=== PATIENT | female | born 1965 | race Caucasian/White ===

== ENCOUNTER 2023-02-03 16:03 | Emergency (ER) | payer OTHER ==
--- OUTSIDE RECORDS SUMMARY | 2023-02-03 16:10 | XMS REPORT | Continuity of Care Document ---
:1965 Author Organization [facility] t Address [address] [place] [address] [place] [id number] Care Team Providers Name Role Phone Pcp, Patient Does Not Have A Primary Care Physician [id number] NAVEEN SEVILLA Attending Clinician Unavailable PATY KUMARI Attending Clinician Unavailable MD SUZANNE Attending Clinician Unavailable CHIQUI COPELAND Attending Clinician Unavailable LAB90 Attending Clinician Unavailable EDDIE VAZQUEZ Attending Clinician Unavailable EDGAR SHAH Attending Clinician Unavailable ERSANJEEV_Jovi Attending Clinician Unavailable Doctor Unassigned, [place] Attending Clinician Unavailable Edy Gan DO Attending Clinician EDY GAN Attending Clinician Unavailable BARB Admitting Clinician Unavailable EDY GAN Admitting Clinician Unavailable Payers Payer Name Policy Type Policy Number Effective Date Expiration Date S asad [employer]ET[employer] MP SILVER 9 [id number] 2022 00:00:00 $30 COPAY 4000 BASIC 94 [employer]ET[employer] (O) [id number] 2022 00:00:00 Problems Condition Condition Condition Status Onset Resolution Last Treating Co mments Source Name Details Category Date Date Treatment Clinician Date Hyperlipid Hyperlipid Disease Active Magda abbasi emgenaro emia 2-15 Seybold 00:00: - 00 Externa l Dysphasia Dysphasia Disease Active Korey sey 2-15 Seybold 00:00: - 00 Externa l Dysphagia Dysphagia Disease Active Korey sey 2-15 Seybold 00:00: - 00 Externa l Type 2 Type 2 Disease Active [place] diabetes diabetes 2-15 Seybol d mellitus mellitus 00:00: - 00 Externa l Stroke Stroke Disease Active Lisset 2-15 Seybold 00:00: - 00 Externa l 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 Seybold upper upper 00:00: - limbs limbs 00 Externa l No known No known Disease Unive rs active active ity of problems problems [facility] Allergies, Adverse Reactions, Alerts Allergy Allergy Status Severity Reaction(s) Onset Inactive Treating Comm ents Source Name Type Date Date Clinician NO KNOWN Drug Active Univers ALLERGIE Class ity of S [facility] Social History Social Habit Start Date Stop Date Quantity Comments Source History of Cigarette Smoker [place] howardborandal - tobacco use External History SDOH 2023-01-16 2023-01-16 3 [place] Yo ld - Financial 00:00:00 00:00:00 External Exposure to 2022-07-28 2022-08-07 Not sure University SARS-CoV-2 00:00:00 11:26:00 [facility] (event) [place] Sex Ass[birth year] At [birth year] [place] Agustin ybold - 00:00:00 00:00:00 External Smoking Status Start Date Stop Date Source Tobacco smoking consumption Renetta howard Seybold - External unknown Smokes tobacco daily 2023-01-17 00:00:00 [place] Gomez - External Medications Ordered Filled Start Stop Current Ordering Indication Dosage Frequency Signature Comments Components Source Medication Medication Date Date Medication? Clinician (SIG) Name Name ASPIRIN 81 Yes Take by Renetta howard OR 3-08 mouth Seybold 11:00: - 39 Externa l Multiple Yes Take by [place] Vitamins-Mi 3-08 mouth Seybold nerals 11:00: - (Womens 50+ 39 Externa Multi l Vitamin/Min ) oral Tablet ASPIRIN 81 Yes Take by Renetta ey OR 3-03 mouth Seybold 11:53: - 05 Externa l Multiple Yes Take by [place] Vitamins-Mi 3-03 mouth Seybold nerals 11:53: - (Womens 50+ 05 Externa Multi l Vitamin/Min ) oral Tablet ASPIRIN 81 Yes Take by Renetta ey OR 3-03 mouth Seybold 11:53: - 05 Externa l Multiple Yes Take by [place] Vitamins-Mi 3-03 mouth Seybold nerals 11:53: - (Womens 50+ 05 Externa Multi l Vitamin/Min ) oral Tablet Nitrofurant 0 Yes [id number] 100mg Take 1 [place] oin Monohyd 2-20 capsule Seybo ld Macro 100 00:00: (100 mg - MG oral 00 total) by Externa Capsule mouth 2 l times daily Nitrofurant 2022-0 Yes [id number] 100mg Take 1 [place] oin Monohyd 2-20 capsule Seybo ld Macro 100 00:00: (100 mg - MG oral 00 total) by Externa Capsule mouth 2 l times daily Nitrofurant 2022-0 2022- No [id number] 100mg Take 1 [place] oin Monohyd 2-20 03-08 capsule Seyb old Macro 100 00:00: 00:00 (100 mg - MG oral 00 :00 total) by Externa Capsule mouth 2 l times daily glipiZIDE 2022-0 2022- No 10mg Take 10 mg K elsey 10 MG oral 2-15 02-15 by mouth Seyb old Tablet 12:26: 00:00 daily - 46 :00 (before a Externa meal) l Lovastatin 2022-0 2022- No 20mg Take 20 mg [place] 20 MG oral 2-15 02-15 by mouth Seyb old Tablet 12:26: 00:00 nightly - 46 :00 Externa l ASPIRIN 81 2022-0 Yes Take by Renetta ey OR 2-15 mouth Seybold 11:45: - 23 Externa l Multiple 0 Yes Take by [place] Vitamins-Mi 2-15 mouth Seybold nerals 11:45: - (Womens 50+ 23 Externa Multi l Vitamin/Min ) oral Tablet Metformin 0 Yes [id number] 500mg Take 1 K elsey HCl 500 MG 2-15 tablet Seybold oral Tablet 00:00: (500 mg - 00 total) by Externa mouth 2 l times daily Lovastatin 0 Yes [id number] 20mg Take 1 K elsey 20 MG oral 2-15 tablet (20 Sey bold Tablet 00:00: mg total) - 00 by mouth Externa nightly l glipiZIDE 2022-0 Yes [id number] 10mg Take 1 Ke lsey 10 MG oral 2-15 tablet (10 Sey bold Tablet 00:00: mg total) - 00 by mouth Externa daily l (before a meal) Metformin 2022-0 Yes [id number] 500mg Take 1 K elsey HCl 500 MG 2-15 tablet Seybold oral Tablet 00:00: (500 mg - 00 total) by Externa mouth 2 l times daily Lovastatin 2022-0 Yes [id number] 20mg Take 1 K elsey 20 MG oral 2-15 tablet (20 Sey bold Tablet 00:00: mg total) - 00 by mouth Externa nightly l glipiZIDE 2022-0 Yes [id number] 10mg Take 1 Ke lsey 10 MG oral 2-15 tablet (10 Sey bold Tablet 00:00: mg total) - 00 by mouth Externa daily l (before a meal) Metformin 2022-0 Yes [id number] 500mg Take 1 K elsey HCl 500 MG 2-15 tablet Seybold oral Tablet 00:00: (500 mg - 00 total) by Externa mouth 2 l times daily Lovastatin 2022-0 Yes [id number] 20mg Take 1 K elsey 20 MG oral 2-15 tablet (20 Sey bold Tablet 00:00: mg total) - 00 by mouth Externa nightly l glipiZIDE 2022-0 Yes [id number] 10mg Take 1 Ke lsey 10 MG oral 2-15 tablet (10 Sey bold Tablet 00:00: mg total) - 00 by mouth Externa daily l (before a meal) Metformin 2022-0 Yes [id number] 500mg Take 1 K elsey HCl 500 MG 2-15 tablet Seybold oral Tablet 00:00: (500 mg - 00 total) by Externa mouth 2 l times daily Lovastatin 2022-0 Yes [id number] 20mg Take 1 K elsey 20 MG oral 2-15 tablet (20 Sey bold Tablet 00:00: mg total) - 00 by mouth Externa nightly l glipiZIDE 2022-0 Yes [id number] 10mg Take 1 Ke lsey 10 MG oral 2-15 tablet (10 Sey bold Tablet 00:00: mg total) - 00 by mouth Externa daily l (before a meal) TAKE ONE 2021-0 No (1) 9-30 TABLET(S) 00:00: BY MOUTH IN 00 THE MORNING AND ONE (1) TABLET IN THE EVENING. B-D 2022-0 Yes Use as [place] ULTRA-FINE 9-21 directed Seybo ld 33 LANCETS 00:00: - does not 00 Externa apply Misc l Blood 2021-0 Yes Use as [place] Glucose 9-21 directed Seybold Monitoring 00:00: - Suppl 00 Externa (Accu-Chek l Guide) w/Device does not apply Kit B-D 2021-0 Yes Use as [place] ULTRA-FINE 9-21 directed Seybo ld 33 LANCETS 00:00: - does not 00 Externa apply Misc l Blood 2021-0 Yes Use as [place] Glucose 9-21 directed Seybold Monitoring 00:00: - Suppl 00 Externa (Accu-Chek l Guide) w/Device does not apply Kit B-D 2021-0 Yes Use as [place] ULTRA-FINE 9-21 directed Seybo ld 33 LANCETS 00:00: - does not 00 Externa apply Misc l Blood 2021-0 Yes Use as [place] Glucose 9-21 directed Seybold Monitoring 00:00: - Suppl 00 Externa (Accu-Chek l Guide) w/Device does not apply Kit B-D 2021-0 Yes Use as [place] ULTRA-FINE 9-21 directed Seybo ld 33 LANCETS 00:00: - does not 00 Externa apply Misc l Blood 2-0 Yes Use as [place] Glucose 9-21 directed Seybold Monitoring 00:00: - Suppl 00 Externa (Accu-Chek l Guide) w/Device does not apply Kit Blood-Gluco 2021-0 Yes [id number] Use as U nivers se Meter 9-21 directed ity of (ACCU-CHEK 00:00: [place] GUIDE 00 Medical GLUCOSE Branch METER) Misc lancets 33 2021-0 Yes [id number] Use as Un surekha gauge Misc 9-21 directed ity o f 00:00: [place] 00 Medical Branch blood sugar 2021-0 Yes [id number] Use as U nivers diagnostic 9-21 directed ity o f (ACCU-CHEK 00:00: [place] GUIDE TEST 00 Medical STRIPS) Branch strip metFORMIN 2021-0 Yes [id number] 500mg Take 1 Un surekha 500 mg 9-21 tablet by ity of tablet 00:00: mouth in [place] 00 the Medical morning Branch and 1 tablet in the evening. Blood-Gluco Yes [id number] Use as U nivers se Meter 08-07 directed ity of (ACCU-CHEK 00:00: [place] GUIDE 00 Medical GLUCOSE Branch METER) Misc lancets 33 0 Yes [id number] Use as Un surekha gauge Misc 08-07 directed ity o f 00:00: [place] 00 Medical Branch blood sugar 0 Yes [id number] Use as U nivers diagnostic 08-07 directed ity o f (ACCU-CHEK 00:00: [place] GUIDE TEST 00 Medical STRIPS) Branch strip metFORMIN Yes [id number] 500mg Take 1 Un surekha 500 mg 9-21 tablet by ity of tablet 00:00: mouth in [place] 00 the Medical morning Branch and 1 tablet in the evening. Metformin 0 2022- No 500mg Take 500 Ke lsey HCl 500 MG 08-07 02-15 mg by Seybold oral Tablet 00:00: 00:00 mouth 2 - 00 :00 times Externa daily l rosuvastati 2021- No [id number] 20mg Take 1 Univers n (CRESTOR) 9-21 10-22 tablet by it y of 20 mg 00:00: 04:59 mouth at [place] tablet 00 :00 bedtime Medical for 30 Branch days. glipiZIDE 2021- No [id number] 10mg Take 1 Un surekha 10 mg 9-21 10-22 tablet by ity of tablet 00:00: 04:59 mouth in [place] 00 :00 the [facility] morning Branch for 30 days. aspirin 81 0 2- No [id number] 81mg Take 1 U nivers mg chewable 9-21 10-22 tablet by it y of tablet 00:00: 04:59 mouth in [place] 00 :00 the Medical morning Branch for 30 days. rosuvastati 2- No [id number] 20mg Take 1 Univers n (CRESTOR) 9-21 10-22 tablet by it y of 20 mg 00:00: 04:59 mouth at [place] tablet 00 :00 bedtime Medical for 30 Branch days. glipiZIDE 2- No [id number] 10mg Take 1 Un surekha 10 mg 9-21 10-22 tablet by ity of tablet 00:00: 04:59 mouth in [place] 00 :00 the [facility] for 30 days. aspirin 81 2- No [id number] 81mg Take 1 U nivers mg chewable 9-21 10-22 tablet by it y of tablet 00:00: 04:59 mouth in [place] 00 :00 the [facility] for 30 days. Vital Signs Vital Name Observation Time Observation Value Comments Source Body weight 2023-01-22 16:54:00 61.689 kg Lisset S eybold - External BMI 2023-01-22 16:54:00 21.95 kg/m2 [place] S eybold - External Systolic blood 2023-01-22 16:54:00 116 mm[Hg] Lisset Seybold - pressure External Diastolic blood 2023-01-22 16:54:00 72 mm[Hg] Koreyse y Seybold - pressure External Heart rate 2023-01-22 16:54:00 86 /min Lisset Dowd eybold - External Body temperature 2023-01-22 16:54:00 36.06 Glo Renetta ey Seybold - External Body height 2023-01-22 16:54:00 167.6 cm [place]isset S eybold - External Systolic blood 2023-01-17 17:47:00 108 mm[Hg] Lisset Seybold - pressure External Diastolic blood 2023-01-17 17:47:00 71 mm[Hg] Kelse y Seybold - pressure External Heart rate 2023-01-17 17:47:00 87 /min [place]isset S eybold - External Body temperature 2023-01-17 17:47:00 37 Glo Renetta ey Seybold - External Respiratory rate 2023-01-17 17:47:00 17 /min Renetta ey Seybold - External Body height 2023-01-17 17:47:00 167.6 cm [place] S eybold - External Body weight 2023-01-17 17:47:00 61.326 kg L[place] S eybold - External BMI 2023-01-17 17:47:00 21.82 kg/m2 Lisset S eybold - External Oxygen saturation in 2023-01-17 17:47:00 95 /min Lisset Seybold - Arterial blood by External Pulse oximetry Systolic blood 2023-01-01 17:37:00 128 mm[Hg] Lisset Agustinybold - pressure External Diastolic blood 2023-01-01 17:37:00 78 mm[Hg] Armando ceja Seybold - pressure External Heart rate 2023-01-01 17:37:00 87 /min Lisset Dowd eybold - External Body temperature 2023-01-01 17:37:00 36.28 Glo Renetta howard Seybold - External Respiratory rate 2023-01-01 17:37:00 15 /min Renetta howard Seybold - External Body height 2023-01-01 17:37:00 160 cm L[place] Dowd eybold - External Body weight 2023-01-01 17:37:00 63.504 kg Lisset howardbold - External BMI 2023-01-01 17:37:00 24.80 kg/m2 Lisset howardbold - External Systolic blood 2022-08-07 15:37:00 128 mm[Hg] Univer sity of pressure [facility] Diastolic blood 2022-08-07 15:37:00 81 mm[Hg] Unive rsity of pressure [facility] Heart rate 2022-08-07 15:37:00 85 /min Universi ty [facility] Body temperature 2022-08-07 15:37:00 36.72 Glo Univ ersity [facility] Respiratory rate 2022-08-07 15:37:00 18 /[facility] 2022-08-07 15:37:00 78.79 kg [facility] Oxygen saturation in 2022-08-07 15:37:00 97 /min [facility] Arterial blood by [facility] Pulse oximetry Branch BP Systolic 2022-08-20 10:48:00 148 mm[Hg] BP Diastolic 2022-08-20 10:48:00 82 mm[Hg] Weight Measured 2022-08-20 10:48:00 171.00 pounds Height Measured 2022-08-20 10:48:00 66.00 inches Body Temperature 2022-08-20 10:48:00 98.30 degrees Heart Rate 2022-08-20 10:48:00 81.00 /min Respiratory Rate 2022-08-20 10:48:00 18.00 /min BP Systolic 2022-07-26 09:51:00 BP Diastolic 2022-07-26 09:51:00 Weight Measured 2022-07-26 09:51:00 175.00 pounds Height Measured 2022-07-26 09:51:00 66.00 inches Body Temperature 2022-07-26 09:51:00 Heart Rate 2022-07-26 09:51:00 Respiratory Rate 2022-07-26 09:51:00 Procedures Procedure Date / Time Performing Clinician Source Performed REFERRAL- 2022-08-21 05:01:00 Doctor Unassigned, No [facility] REQUEST/RESPONSE Name [facility] CT HEAD WO CONTRAST 2022-08-07 16:49:05 Gan, [facility] COMP. METABOLIC PANEL 2022-08-07 16:24:00 [facility] ([id number]) [facility] LIPID PANEL 2022-08-07 16:24:00 [facility] ([id number])(TOTAL Medical [place] CHOLESTEROL, TRIGLYCERIDES, HDL) CBC WITH DIFF 2022-08-07 16:24:00 [facility] GLYCOSYLATED HEMOGLOBIN 2022-08-07 16:24:00 [facility] (A1C) [facility] NOTICE OF PRIVACY 2022-08-07 15:35:55 Doctor Unassigned, No [facility] PRACTICES Name [facility] CONSENT/REFUSAL FOR 2022-08-07 15:31:56 Doctor Unassigned, No [facility] DIAGNOSIS AND TREATMENT Name [facility] Plan of Care Planned Activity Planned Date Details Comments Source Goal Plan of Care Note [code = 99039-3] Goal Plan of Care Note [code = 74611-5] Goal Plan of Care Note [code = 20618-7] Goal Plan of Care Note [code = 96687-2] Goal Plan of Care Note [code = 34032-0] Goal Plan of Care Note [code = 44302-0] Goal Plan of Care Note [code = 33480-3] Encounters Start End Encounter Admission Attending Care Care Encounter Source Date/Time Date/Time Type Type Clinicians Facility Department ID 2023-04-11 2023-04-11 Outpatient LISSET SEVILLA [id number] [place] 14:00:00 14:00:00 NAVEEN Seybol d 2023-02-14 2023-02-14 Outpatient LISSET DOZIER [id number] [place] 10:00:00 10:00:00 Seybol d 2023-02-14 2023-02-14 Outpatient LISSET DOZIER [id number] [place] 09:00:00 09:00:00 Seybol d 2023-02-03 2023-02-03 Outpatient LISSET KUMARI [id number] [place] 00:00:00 00:00:00 PATY Seybo ld 2023-01-29 2023-01-29 Outpatient LISSET KUMARI [id number] [place] 09:15:00 09:15:00 PATY Seybo ld 2023-01-29 2023-01-29 Outpatient TAZ LISSET DOZIER [id number] [place] 00:00:00 00:00:00 MD JEROD Seybol d 2023-01-28 2023-01-28 Outpatient LISSET DOZIER [id number] [place] 10:00:00 10:00:00 Seybol d 2023-01-28 2023-01-28 Outpatient CHIQUI COPELAND [id number] [place] 00:00:00 00:00:00 Seybol d 2023-01-27 2023-01-27 Outpatient LISSET DOZIER [id number] [place] 09:45:00 09:45:00 Seybol d 2023-01-24 2023-01-24 Outpatient CHIQUI COPELAND [id number] [place] 00:00:00 00:00:00 Seybol d 2023-01-22 2023-01-22 Outpatient LAB90 LISSET DOZIER [id number] [place] 11:45:00 11:45:00 Seybol d 2023-01-22 2023-01-22 Outpatient LISSET VAZQUEZ [id number] [place] 11:00:00 11:00:00 EDDIE Seybol d 2023-01-21 2023-01-21 Outpatient LISSET SEVILLA [id number] [place] 00:00:00 00:00:00 NAVEEN Seybol d 2023-01-21 2023-01-21 Outpatient LISSET VAZQUEZ [id number] [place] 00:00:00 00:00:00 EDDIE Seybol d 2023-01-17 2023-01-17 Outpatient LISSET SHAH [id number] [place] 16:00:00 16:00:00 EDGAR Seybol d 2023-01-17 2023-01-17 Outpatient LISSET SEVILLA [id number] [place] 11:45:00 11:45:00 NAVEEN Seybol d 2023-01-17 2023-01-17 Outpatient CHIQUI COPELAND [id number] [place] 11:00:00 11:00:00 Seybol d 2023-01-16 2023-01-16 Outpatient LISSET KUMARI [id number] [place] 14:45:00 14:45:00 PATY Seybo ld 2023-01-06 2023-01-06 Outpatient LISSET VAZQUEZ [id number] [place] 00:00:00 00:00:00 EDDIE Seybol d 2023-01-01 2023-01-01 Outpatient LAB90 LISSET DOZIER [id number] [place] 12:35:00 12:35:00 Seybol d 2023-01-01 2023-01-01 Outpatient LISSET VAZQUEZ [id number] [place] 11:30:00 11:30:00 EDDIE Seybol d 2022-12-17 2022-12-17 Outpatient ERICKSON_R [facility] [id number] [place] 00:00:00 00:00:00 [id number] 2022-12-17 2022-12-17 Outpatient ERICKSON_R [facility] [id number] [place] 00:00:00 00:00:00 0206 [facility] 2022-08-28 2022-08-[address] [facility] [id number] [place] 13:40:06 13:40:06 [id number] Joleen Britton 2022-08-21 2022-08-21 Cyndy SEE [id number] Univers 00:00:00 00:00:00 Only Unassigned, ALBER [id number] ity of [place] [facility] [id number] [facility] [id number] [facility] 009 Branch 2022-08-20 2022-08-[address] [facility] [id number] [place] 10:28:05 10:28:05 F Tobi 2022-08-20 2022-08-20 Outpatient [id number] 00:00:00 00:00:00 Visit [id number] 2022-08-07 2022-08-07 Emergency MURIEL Gan [id number] Univers 10:38:00 13:21:00 Edy CHAMPION [id number] i ty of [place] 4.2.7.2[address] [facility] [id number] [facility] 084 Branch 2022-08-07 2022-08-07 Emergency X [facility] ERT [id number] Univers 10:38:00 13:21:00 EDY bautista of [facility] 2022-07-26 2022-07-26 Outpatient [id number] 00:00:00 00:00:00 Visit [id number]
--- NOTE | 2023-02-03 17:49 | RAD REPORT ---
EXAM DESCRIPTION: Margarette Single View02/03/2023 5:17 pm CLINICAL HISTORY: Dysphagia COMPARISON: none FINDINGS: The lungs appear clear of acute infiltrate. The heart is normal size IMPRESSION: No acute abnormalities displayed
--- NOTE | 2023-02-03 20:58 | ER ---
Nurse's Notes [facility] Name: Leeann Miller Age: 57 yrs Sex: Female : 1965 Arrival Date: 02/03/2023 Time: 16:05 Bed External Waiting Private MD: Diagnosis: Presentation: 02/03 16:45 Chief complaint: Pt's states "her neurologist said that she might need a aa5 feeding tube if she keeps loosing weight". Pt's reports weight loss of 100 lbs over the last 2 years. Pt's states "they are trying to find out what is wrong with her but she can't swallow anything". 16:45 Coronavirus screen: At this time, the client does not indicate any symptoms associated aa5 with coronavirus-19. Ebola Screen: Patient denies travel to an Ebola-affected area in the 21 days before illness onset. Initial Sepsis Screen: Does the patient meet any 2 criteria? No. Patient's initial sepsis screen is negative. Does the patient have a suspected source of infection? No. Patient's initial sepsis screen is negative. Risk Assessment: Do you want to hurt yourself or someone else? Unable to obtain. Onset of symptoms is unknown. 16:45 Acuity: TONG 3 aa5 16:45 Method Of Arrival: Wheelchair aa5 Historical: - Allergies: 16:52 No Known Allergies; aa5 - PMHx: 16:52 Diabetes mellitus; Hypercholesterolemia; Non-verbal for 2 years; Possible neurological aa5 problem (currently under neurologist care for diagnosis); - Immunization history:: Adult Immunizations unknown. - Social history:: Smoking status: Patient reports the use of cigarette tobacco products. Assessment: 20:55 Reassessment: notified by registration the ED provider was told pt left 2 hours ago. bb Vital Signs: 16:45 BP 104 / 77; Pulse 79; Resp 18 S; Temp 97.8(TE); Pulse Ox 100% on R/A; aa5 ED Course: 16:05 Patient arrived in ED. am2 16:09 Benji Wong PA is PHCP. cp 16:09 Amari Baumann MD is Attending Physician. cp 16:45 Arm band placed on. aa5 16:52 Triage completed. aa5 17:19 XRAY Chest (1 view) In Process Unspecified. EDMS 19:22 Radiology exam delayed due to lab results not completed at this time. IV insertion nj attempt and/or patient not having appropriate IV at this time. Administered Medications: No medications were administered Outcome: 20:58 Patient left the ED. bb Signatures: Dispatcher [employer] EDMD Elvia Lemon RN RN bb Aiyana Arita RN RN aa5 Benji Wong PA PA cp Jordan, Nathan nj Moreno, Amanda am2
--- NOTE | 2023-02-03 20:59 | EDPHYS ---
Physician Documentation [facility] Name: Leeann Miller Age: 57 yrs Sex: Female : 1965 Arrival Date: 02/03/2023 Time: 16:05 Bed External Waiting Private MD: ED Physician Amari Baumann HPI: 02/03 16:40 This 57 yrs old Female presents to ER via Wheelchair with complaints of Decreased cp Appetite, Difficulty Swallowing, weightloss. 16:40 The patient presents with dysphagia, of both solids and liquids. cp 16:40 Onset: The symptoms/episode began/occurred gradually. Associated signs and symptoms: cp Pertinent positives: weight loss, anorexia. Patient is non-verbal. reports patient is currently being evaluated by neurology for upper extremity weakness, aphasia. Has had decreasing appetite, weight loss since last year and worse since last August. Referred to ED for evaluation for gastrostomy tube placement. Historical: - Allergies: 16:52 No Known Allergies; aa5 - PMHx: 16:52 Diabetes mellitus; Hypercholesterolemia; Non-verbal for 2 years; Possible neurological aa5 problem (currently under neurologist care for diagnosis); - Immunization history:: Adult Immunizations unknown. - Social history:: Smoking status: Patient reports the use of cigarette tobacco products. ROS: 16:45 Constitutional: Positive for poor PO intake, weight loss, Negative for body aches, cp chills, fever. 16:45 Eyes: Negative for injury, pain, redness, and discharge. cp 16:45 ENT: Positive for difficulty swallowing. 16:45 Cardiovascular: Negative for chest pain, edema, palpitations. 16:45 Respiratory: Negative for cough, shortness of breath, wheezing. 16:45 Abdomen/GI: Negative for abdominal pain, vomiting, diarrhea, constipation. 16:45 Neuro: Positive for weakness, Negative for altered mental status. 16:45 Unable to obtain ROS due to patient non-verbal. Exam: 16:50 Constitutional: The patient appears in no acute distress, alert, awake, cp non-diaphoretic, non-toxic, well developed. 16:50 Head/Face: Normocephalic, atraumatic. cp 16:50 Eyes: Periorbital structures: appear normal, Pupils: equal, round, and reactive to light and accomodation, Conjunctiva: normal, Sclera: no appreciated abnormality, Lids and lashes: appear normal, bilaterally. 16:50 ENT: External ear(s): are unremarkable, Nose: is normal, Mouth: Lips: moist, Oral mucosa: moist, Posterior pharynx: is normal, airway is patent, no erythema, no exudate. 16:50 Neck: C-spine: vertebral tenderness, is not appreciated, crepitus, is not appreciated. 16:50 Chest/axilla: Inspection: normal. 16:50 Cardiovascular: Rate: normal, Rhythm: regular, Edema: is not appreciated, JVD: is not appreciated. 16:50 Respiratory: the patient does not display signs of respiratory distress, Respirations: normal, no use of accessory muscles, no retractions, labored breathing, is not present, Breath sounds: are clear throughout, no decreased breath sounds, no stridor, no wheezing. 16:50 Abdomen/GI: Inspection: abdomen appears normal, Palpation: abdomen is soft and non-tender, in all quadrants. 16:50 Back: CVA tenderness, is absent. 16:50 Skin: cellulitis, is not appreciated, no rash present. 16:50 Neuro: Orientation: unable to test, patient non-verbal, Mentation: patient non-verbal. Vital Signs: 16:45 BP 104 / 77; Pulse 79; Resp 18 S; Temp 97.8(TE); Pulse Ox 100% on R/A; aa5 MDM: 16:29 Patient medically screened. 02/03 16:33 Order name: XRAY Chest (1 view); Complete Time: 20:03 02/03 20:03 Interpretation: Report review. 02/03 16:33 Order name: EKG; Complete Time: 16:34 02/03 16:55 Order name: Cardiac monitoring 02/03 16:55 Order name: EKG - Nurse/Tech 02/03 16:55 Order name: IV Saline Lock 02/03 16:55 Order name: Labs collected and sent 02/03 16:55 Order name: O2 Per Protocol 02/03 16:55 Order name: O2 Sat Monitoring 02/03 16:55 Order name: Urine Dipstick-Ancillary (obtain specimen) 02/03 16:55 Order name: Urine Test (obtain specimen) Administered Medications: No medications were administered Disposition Summary: 02/03/23 20:58 Eloped Disposition: post triage evaluation and consult bb Reason: unknown bb Signatures: Dispatcher [employer] EDMS Elvia Lemon RN RN bb Aiyana Arita RN RN aa5 Benji Wong PA PA cp Corrections: (The following items were deleted from the chart) 16:35 16:33 Cardiac monitoring ordered. cp cp 16:35 16:33 EKG - Nurse/Tech ordered. cp cp 16:36 16:33 IV Saline Lock ordered. cp cp 16:36 16:33 Labs collected and sent ordered. cp cp 16:36 16:33 Oxygen Per Protocol ordered. cp cp 16:36 16:33 O2 Sat Monitoring ordered. cp cp 16:40 16:34 BASIC METABOLIC PANEL+C.LAB.BRZ ordered. EDMS EDMS 16:40 16:34 CBC+H.LAB.BRZ ordered. EDMS EDMS 16:40 16:34 MONO SCREEN PROFILE+I.LAB.BRZ ordered. EDMS EDMS 16:40 16:34 Group A Streptococcus Rapid Sc+BA.LAB.BRZ ordered. EDMS EDMS 20:42 16:34 Soft Tissue Neck W/Contr+CT.RAD.BRZ ordered. EDMS EDMS 02/04 15:54 02/03 16:40 Patient is non-verbal. reports patient is currently being evaluated cp by neurology for upper extremity weakness, aphasia. Has had decreasing appetite, weight loss since last year and worse since last August. Referred to ED for evaluation for gastrostomy tube placement. cp 02/04 15:54 02/03 16:45 Unable to obtain ROS due to due to aphasia, cp cp
[2023-02-04 06:08] VITALS: BP 104/77; TEMP 97.8; O2SAT 100
== END 2023-02-03 20:58 | disposition left against medical advice (07) ==
LOC: ER 16:03
DX: R13.10 Dysphagia, unspecified (principal); R63.4 Abnormal weight loss; E11.9 Type 2 diabetes mellitus without complications; Z72.0 Tobacco use
CPT/HCPCS: 71045

== ENCOUNTER → 2023-11-26 | Emergency (ER) | payer OTHER, SELFPAY ==
[~2023-11-26] MED LIST: CEFEPIME 1 GM/VIAL ONE; D5.45NS W/KCL 20MEQ 1,000 ML IV ONE; LORazepam 2 MG/ML VIAL ONE; NA CHLORIDE 0.9% 100 ML ONE
[2023-11-26 15:56] LABS: Absolute Lymphocytes (CBC) 1.7 K/uL (0.7-4.9); Hematocrit 47.5 % (36.0-45.0); Lymphocytes % 6.5 % (15.3-44.8); MCV 88.6 fL (80-100); MPV 10.1 fL (7.6-11.3); Platelets 236 thou/uL (152-406); RBC Red Blood Cell Count 5.36 M/uL (3.86-4.86)
[2023-11-26 16:01] LABS: Protime INR 1.01
[2023-11-26 16:22] LABS: Albumin 3.5 g/dL (3.4-5.0); Bilirubin Total 0.7 mg/dL (0.2-1.0); Troponin High Sensitivity 7.4 pg/mL (<58.9)
[2023-11-26 16:23] LABS: SARS-CoV-2 Antigen Rapid Res Negative (Negative)
[2023-11-26 16:24] LABS: Urine Bacteria 20-50 /HPF (<20); Urine Bilirubin NEGATIVE (Negative); Urine Blood Negative (Negative); Urine Clarity Extremely Turbid (Clear); Urine Color Yellow (Yellow); Urine Crystals Unidentified Few /HPF (None Seen); Urine Glucose NEGATIVE (Negative); Urine Mucus 2+ /HPF (None Seen); Urine Protein 1+ (Negative); Urine Urobilinogen Normal (Normal); Urine WBC Clump Rare /HPF (None Seen); Urine pH 5.5 (5.0-7.0)
[2023-11-26 16:31] LABS: Blood Morphology Comment NOT SEEN (NOT SEEN); Platelet Estimate ADEQ; White Blood Cell Scan OK (OK)
--- NOTE | 2023-11-26 16:43 | RAD REPORT ---
EXAM DESCRIPTION: CT - Head C Spine Mpr Wo Con - 11/26/2023 4:27 pm CLINICAL HISTORY: Bilateral upper extremity weakness COMPARISON: None. TECHNIQUE: Computed axial tomography of the head and cervical spine was obtained. Sagittal and coronal reconstruction was performed. All CT scans are performed using dose optimization technique as appropriate and may include automated exposure control or mA/KV adjustment according to patient size. FINDINGS: An intracranial bleed is not seen. The ventricles are normal in caliber. No significant hypodensity within the brain. An extra-axial fluid collection is not noted. Fluid within the visualized sinuses and mastoids is not seen A cervical fracture is not visualized. No dislocation is noted. Osteophytes, facet hypertrophy and disc bulge C3-4 resulting in moderate narrowing the right neural f oramina Osteophytes, facet hypertrophy and disc bulge C4-5 result in mild narrowing the right neural foramina Small left paracentral disc herniation C5-6. This in combination with disc bulge and osteophytes resu lt in moderate narrowing of the neural foramina bilaterally. Thecal sac measures 7 millimeters. Sligh t posterior subluxation C5 on C6 IMPRESSION: No acute intracranial abnormality is seen. A cervical fracture is not visualized. Spondylosis C3-4 resulting in mild right foraminal stenosis Small left paracentral disc herniation C5-6. This in combination with spondylosis result in mild to m oderate central spinal stenosis and moderate bilateral foraminal stenosis. Nonemergent MRI may be helpful for further evaluation
--- NOTE | 2023-11-26 16:45 | RAD REPORT ---
EXAM DESCRIPTION: Margarette Single View11/26/2023 3:54 pm CLINICAL HISTORY: sob COMPARISON: January 2023 FINDINGS: The lungs appear clear of acute infiltrate. The heart is normal size IMPRESSION: No acute abnormalities displayed
--- NOTE | 2023-11-26 17:40 | ER ---
Nurse's Notes [facility] Name: Leeann Miller Age: 58 yrs Sex: Female : 1965 Arrival Date: 11/26/2023 Time: 15:15 Bed 3 Private MD: Diagnosis: UTI/ Urinary tract infection, site not specified;Weakness;Hypoxemia;Dyspnea, unspecified Presentation: 11/26 15:23 Chief complaint: EMS states: toned out to patient home for shortness of breath. SpO2 ld1 78% RA. Pt arrived on bipap to ER. Coronavirus screen: At this time, the client does not indicate any symptoms associated with coronavirus-19. Ebola Screen: No symptoms or risks identified at this time. Initial Sepsis Screen: Does the patient meet any 2 criteria?. Initial Sepsis Screen: Does the patient meet any 2 criteria? RR > 20 per min. HR > 90 bpm. Yes Does the patient have a suspected source of infection? No. Patient's initial sepsis screen is negative. Risk Assessment: Do you want to hurt yourself or someone else? Patient reports no desire to harm self or others. Onset of symptoms was November 26, 2023 at 15:26. 15:23 Method Of Arrival: EMS: [facility] ld1 15:23 Acuity: TONG 2 ld1 Triage Assessment: 15:23 General: Appears in no apparent distress. uncomfortable, Behavior is cooperative. Pain: ld1 Denies pain. EENT: No signs and/or symptoms were reported regarding the EENT system. Neuro: Level of Consciousness is awake, Oriented to none. Cardiovascular: Capillary refill < 3 seconds Patient's skin is warm and dry. Rhythm is sinus tachycardia. Respiratory: Reports shortness of breath at rest on exertion Airway is patent Respiratory effort is even, labored, Patient placed on BiPAP: FiO2%: 100 Onset: The symptoms/episode began/occurred this morning, the patient has moderate shortness of breath. GI: Abdomen is flat, non-distended. : No signs and/or symptoms were reported regarding the genitourinary system. Derm: No signs and/or symptoms reported regarding the dermatologic system. Musculoskeletal: No signs and/or symptoms reported regarding the musculoskeletal system. Historical: - Allergies: 15:23 No Known Allergies; ld1 - PMHx: 15:23 diabetes mellitus; Hypercholesterolemia; Non-verbal for 2 years; Possible neurological ld1 problem (currently under neurologist care for diagnosis); - Immunization history:: Adult Immunizations unknown. - Social history:: Smoking status: Patient reports the use of cigarette tobacco products, smokes one-half pack cigarettes per day. - Family history:: not pertinent. - Hospitalizations: : No recent hospitalization is reported. Screenin:27 [facility] ED Fall Risk Assessment (Adult) History of falling in the last 3 months, ld1 including since admission No falls in past 3 months (0 pts). Abuse screen: Denies threats or abuse. Denies injuries from another. Nutritional screening: No deficits noted. Tuberculosis screening: No symptoms or risk factors identified. Assessment: 15:27 Reassessment: ERP at bedside. Code sepsis called. See triage assessment. ld1 Cardiovascular: Capillary refill < 3 seconds Patient's skin is warm and dry. Rhythm is sinus tachycardia. Respiratory: Airway is patent Respiratory effort is even, labored, Breath sounds with wheezes bilaterally. 16:30 Reassessment: No changes from previously documented assessment. Patient and/or family ld1 updated on plan of care and expected duration. Pain level reassessed. 17:30 Reassessment: No changes from previously documented assessment. Patient and/or family ld1 updated on plan of care and expected duration. Pain level reassessed. 18:30 Reassessment: No changes from previously documented assessment. Patient and/or family ld1 updated on plan of care and expected duration. Pain level reassessed. Called report - waiting on patient transport. at beside. Pt given meds to keep calm due to pt pulling off BIPAP mask. Vital Signs: 15:23 BP 133 / 94; Pulse 109; Resp 37; Temp 97.9(TE); Pulse Ox 98% on 100 lpm BiPAP; Weight ld1 47.63 kg; Height 5 ft. 4 in. ; Pain 0/10; 15:27 BP 146 / 104; Pulse 107; Resp 23; Pulse Ox 95% on BiPAP; ld1 16:07 BP 131 / 92; Pulse 103; Resp 17; Pulse Ox 100% on BiPAP; ld1 16:40 BP 134 / 90; Pulse 97; Resp 16; Pulse Ox 98% on BiPAP; ld1 17:40 BP 103 / 75; Pulse 89; Resp 28; Pulse Ox 92% on BiPAP; ld1 18:55 BP 105 / 81; Pulse 93; Pulse Ox 98% on BiPAP; ld1 15:23 Body Mass Index 18.02 (47.63 kg, 162.56 cm) ld1 15:23 Pain Scale: Adult ld1 ED Course: 15:22 Patient arrived in ED. ld1 15:23 Arm band placed on right wrist. EKG completed in triage. Results shown to MD. ld1 15:24 Tino Christy MD is Attending Physician. rn 15:26 Triage completed. ld1 15:27 Patient has correct armband on for positive identification. Placed in gown. Bed in low ld1 position. Call light in reach. Side rails up X2. monitoring analyst on. Pulse ox on. NIBP on. Door closed. Noise minimized. Warm blanket given. 15:27 No provider procedures requiring assistance completed. Maintain EMS IV. Dressing ld1 intact. Good blood return noted. Site clean \T\ dry. Gauge \T\ site: 20G RAC. 15:50 Radiology exam delayed due to patient getting blood cultures done at this time. iv 15:56 Stroke CXR 1 View In Process Unspecified. EDMS 16:06 Flu Sent. ld1 16:06 SARS RAPID Sent. ld1 16:06 Blood Culture Adult (2) Sent. ld1 16:06 CMP Sent. ld1 16:06 Lactate w/ 2H reflex if indic. Sent. ld1 16:07 Teresita Singh, RN is Primary Nurse. ld1 16:07 Urinalysis w/ reflexes Sent. ld1 16:07 Inserted saline lock: 20 gauge in left antecubital area, using aseptic technique. Blood ld1 collected. 16:28 CT Head C Spine In Process Unspecified. EDMS 17:36 initiated transfer to [facility]. bd 17:45 initiated transfer to [facility], pt denied at all [facility] campus' due to no capacity at this bd time, per Karine Ruiz. 17:54 pt denied at [facility] due to no icu beds, denied at [facility] due to pt bd needing a higher level of care, per Mindy Archibald. 18:12 initiated transfer to [facility]. bd 18:20 pt accepted in transfer to [facility] by Dr Ron Reddy admin approval given by dipak Weinberg RN. 19:07 Provided Education on: need for transfer. jw7 19:07 Patient transferred, IV remains in place. jw7 Administered Medications: 16:41 Drug: Cefepime IVPB 1 grams IVPB at 200 ml/hr once over 30 mins; (mix in NS 100 mL) ld1 Route: IVPB; Rate: 200 ml/hr; Infused Over: 30 mins; Site: right antecubital; 19:08 Follow up: Response: No adverse reaction; IV Status: Completed infusion; IV Intake: jw7 100ml 18:28 Drug: Ativan IVP 0.5 mg IVP once Route: IVP; Site: right antecubital; ld1 19:08 Follow up: Response: No adverse reaction jw7 18:55 Drug: D5-1/2 NS with KCl IV 20 mEq/L 1000 ml IV at 125 ml/hr continuous Route: IV; ld1 Rate: 125 ml/hr; Site: right antecubital; 19:08 Follow up: Response: No adverse reaction; IV Status: Infusion continued upon transfer; jw7 IV Intake: 50ml Medication: 19:07 VIS not applicable for this client. jw7 Intake: 19:08 IV: 100ml; Total: 100ml. jw7 19:08 IV: 50ml; Total: 150ml. jw7 Outcome: 17:39 ER care complete, transfer ordered by . rn 19:07 Transferred by ground EMS to [facility], jw7 19:07 Condition: stable 19:07 Instructed on the need for transfer, Demonstrated understanding of instructions, 19:24 Patient left the ED. jw7 Signatures: Dispatcher [employer] EDMS Jody Mathew Roman, MD MD rn Sims, Lauren, RN RN ld1 Natalie Valero RN RN jw7 Tennille Paul iv
--- NOTE | 2023-11-26 17:40 | EDPHYS ---
Physician Documentation [facility] Name: Leeann Miller Age: 58 yrs Sex: Female : 1965 Arrival Date: 11/26/2023 Time: 15:15 Bed 3 Private MD: ED Physician Tino Christy HPI: 11/26 16:16 This 58 yrs old Female presents to ER via EMS with complaints of Shortness Of Breath. rn 16:16 Onset: The symptoms/episode began/occurred 3 day(s) ago. Duration: The symptoms are rn continuous. The patient's shortness of breath is aggravated by nothing. Associated signs and symptoms: Pertinent positives: non-productive cough, Pertinent negatives: fever, hemoptysis. Severity of symptoms: At their worst the symptoms were moderate in the emergency department the symptoms are unchanged. The patient has not experienced similar symptoms in the past. EMS reports called out for shortness of breath, O2 sat was 78% on room air. reports for the last year or 2 has been dealing with neurological problems including difficulty with speech, difficulty with swallowing, weakness of bilateral upper extremities. reports canine eat or swallow normally so bottle feeds her with frequent coughing and choking episodes. Shortness of breath that has gotten worse over the last 3 days. No fever. Positive cough.. Historical: - Allergies: 15:23 No Known Allergies; ld1 - PMHx: 15:23 diabetes mellitus; Hypercholesterolemia; Non-verbal for 2 years; Possible neurological ld1 problem (currently under neurologist care for diagnosis); - Immunization history:: Adult Immunizations unknown. - Social history:: Smoking status: Patient reports the use of cigarette tobacco products, smokes one-half pack cigarettes per day. - Family history:: not pertinent. - Hospitalizations: : No recent hospitalization is reported. ROS: 16:16 Constitutional: Negative for fever, chills, and weight loss, Respiratory: Positive for rn cough and shortness of breath Abdomen/GI: Negative for abdominal pain, nausea, vomiting, diarrhea, and constipation, MS/Extremity: Negative for injury and deformity, Skin: Negative for injury, rash, and discoloration, Neuro: Positive for weakness bilateral upper extremities and difficulty swallowing/speaking Exam: 16:16 Constitutional: Cachectic female on BiPAP, nonverbal Head/Face: Normocephalic, rn atraumatic. Eyes: Pupils equal round and reactive to light, extra-ocular motions intact. Sunken eyes ENT: Dry mucous membrane with poor dentition Cardiovascular: Tachycardic, regular. Respiratory: Mild tachypnea. Coarse bilateral breath sounds Abdomen/GI: Scaphoid abdomen, nontender MS/ Extremity: Pulses equal, no cyanosis. Neuro: Awake and alert, GCS 15, no effort against gravity either upper extremity. Some effort against gravity bilateral lower extremities. Vital Signs: 15:23 BP 133 / 94; Pulse 109; Resp 37; Temp 97.9(TE); Pulse Ox 98% on 100 lpm BiPAP; Weight ld1 47.63 kg; Height 5 ft. 4 in. ; Pain 0/10; 15:27 BP 146 / 104; Pulse 107; Resp 23; Pulse Ox 95% on BiPAP; ld1 16:07 BP 131 / 92; Pulse 103; Resp 17; Pulse Ox 100% on BiPAP; ld1 16:40 BP 134 / 90; Pulse 97; Resp 16; Pulse Ox 98% on BiPAP; ld1 17:40 BP 103 / 75; Pulse 89; Resp 28; Pulse Ox 92% on BiPAP; ld1 18:55 BP 105 / 81; Pulse 93; Pulse Ox 98% on BiPAP; ld1 15:23 Body Mass Index 18.02 (47.63 kg, 162.56 cm) ld1 15:23 Pain Scale: Adult ld1 MDM: 15:24 Patient medically screened. rn 17:16 Differential diagnosis: Myocardial Infarction pneumonia, Pneumothorax pulmonary edema. rn Data reviewed: vital signs, nurses notes, lab test result(s), radiologic studies, CT scan, plain films, and as a result, I will admit patient. Care significantly affected by the following chronic conditions: Diabetes, Neuromuscular disorder. Counseling: I had a detailed discussion with the patient and/or guardian regarding the historical points, exam findings, and any diagnostic results supporting the discharge/admit diagnosis, lab results, radiology results, the need for further work-up and treatment in the hospital. Response to treatment: the patient's symptoms have mildly improved after treatment, and as a result, I will admit patient. ED course: Patient with longstanding neuromuscular disorder that has not been clearly diagnosed. Story sounds most like aspiration given dysphagia, but chest x-ray is clear. Patient with UTI. Empiric antibiotics administered. Lactic acid normal. Will admit to hospitalist service for further evaluation, neurological consultation to rule out central cause, and pulmonology consultation. . 17:29 ED course: COnsulted with hospitalist service here for admission, they are concerned rn that patient is too ill to stay here, may have central cause of her respiratory difficulty, and needs to be transferred. Attempted transfer to [facility] and no beds, will try [facility]. . 17:37 ED course: Consulted with Dr. Murray, recommends transfer for higher level of care rn and neurological workup. . 17:38 ED course: I personally spent 35 minutes engaged in work directly related to the rn individual patient's care. This does not include any time spent performing procedures. The patient has been deemed critically ill because of upper extremity weakness possibly causing central respiratory depression and difficulties, need for BiPAP, IV antibiotics, stabilization and organization of transfer with multiple consultations. 17:48 ED course: [facility] at capacity unable to accommodate patient. rn 17:53 ED course: [facility] declined transfer due to the same problems we are rn having here and unable to completely evaluate for neuromuscular disorder. [employer] Operator at [facility] recommends transfer to tertiary care center. [facility] without ICU beds or neuro ICU beds. [facility] also at capacity and unable to accommodate patient. Trying [place] system.. 18:19 ED course: Patient accepted for transfer to [place] neuro ICU for higher level of care..rn 11/26 15:30 Order name: Basic Metabolic Panel rn 11/26 15:30 Order name: CBC with Diff; Complete Time: 16:36 rn 11/26 15:30 Order name: High Sensitivity Troponin; Complete Time: 16:27 rn 11/26 15:30 Order name: Protime (+inr); Complete Time: 16:10 rn 11/26 15:30 Order name: Ptt, Activated; Complete Time: 16:10 rn 11/26 15:30 Order name: Blood Culture Adult (2) rn 11/26 15:30 Order name: CMP; Complete Time: 16:27 rn 11/26 15:30 Order name: Lactate w/ 2H reflex if indic.; Complete Time: 16:10 rn 11/26 15:30 Order name: Urinalysis w/ reflexes; Complete Time: 16:27 rn 11/26 15:30 Order name: SARS RAPID; Complete Time: 16:27 rn 11/26 15:30 Order name: Flu; Complete Time: 16:36 rn 11/26 16:27 Order name: Urine Culture EDKS 11/26 16:32 Order name: CBC Smear Scan; Complete Time: 16:36 EDKS 11/26 15:30 Order name: Stroke CXR 1 View; Complete Time: 16:52 rn 11/26 15:30 Order name: BIPAP rn 11/26 16:15 Order name: CT Head C Spine; Complete Time: 16:52 rn 11/26 15:30 Order name: EKG; Complete Time: 15:31 rn 11/26 15:30 Order name: Accucheck; Complete Time: 15:42 rn 11/26 15:30 Order name: Cardiac monitoring; Complete Time: 15:42 rn 11/26 15:30 Order name: EKG - Nurse/Tech; Complete Time: 15:42 rn 11/26 15:30 Order name: IV Saline Lock; Complete Time: 15:42 rn 11/26 15:30 Order name: Labs collected and sent; Complete Time: 15:42 rn 11/26 15:30 Order name: NPO; Complete Time: 15:42 rn 11/26 15:30 Order name: O2 Per Protocol; Complete Time: 15:42 rn 11/26 15:30 Order name: O2 Sat Monitoring; Complete Time: 15:42 rn 11/26 15:30 Order name: Stroke Swallow Screen; Complete Time: 16:07 rn 11/26 15:30 Order name: IV Saline Lock - Large Bore; Complete Time: 15:42 rn 11/26 15:30 Order name: Vital Signs; Complete Time: 15:42 rn Administered Medications: 16:41 Drug: Cefepime IVPB 1 grams IVPB at 200 ml/hr once over 30 mins; (mix in NS 100 mL) ld1 Route: IVPB; Rate: 200 ml/hr; Infused Over: 30 mins; Site: right antecubital; 19:08 Follow up: Response: No adverse reaction; IV Status: Completed infusion; IV Intake: jw7 100ml 18:28 Drug: Ativan IVP 0.5 mg IVP once Route: IVP; Site: right antecubital; ld1 19:08 Follow up: Response: No adverse reaction jw7 18:55 Drug: D5-1/2 NS with KCl IV 20 mEq/L 1000 ml IV at 125 ml/hr continuous Route: IV; ld1 Rate: 125 ml/hr; Site: right antecubital; 19:08 Follow up: Response: No adverse reaction; IV Status: Infusion continued upon transfer; jw7 IV Intake: 50ml Disposition: 17:38 Critical Care:. rn Disposition Summary: 11/26/23 17:39 Transfer Ordered Notes: Reason: Higher level of care rn Condition: Stable rn Problem: an ongoing problem rn Symptoms: have improved return agent Location: [facility](11/26/23 17:55) rn Accepting Physician: (11/26/23 19:24) jw7 Diagnosis - UTI/ Urinary tract infection, site not specified rn - Weakness rn - Hypoxemia rn - Dyspnea, unspecified rn Forms: - Medication Reconciliation Form rn - SBAR form staffing rn time excluding procedures: 17:38 Critical care time: Bedside Care: 35 minutes, Consultation: 5 minutes. Total time: 40 rn minutes Signatures: Dispatcher [employer] EDKS Rola Mccoy, FILTER PRESS TENDER-C FILTER PRESS TENDER-Ckb Tino Christy MD MD rn Sims, Lauren, RN RN ld1 Natalie Valero RN RN jw7 Corrections: (The following items were deleted from the chart) 15:44 15:30 CT-STROKE BRAIN W/O CONTRAST+CT.RAD.BRZ ordered. EDKS EDMS 16:29 15:44 Head Brain Wo Cont ordered. EDKS EDMS 17:55 17:39 rn rn 17:55 17:39 [facility] rn rn 19:24 17:55 Dr. perkins jw7
[2023-11-26 22:34] VITALS: TEMP 97.9; O2SAT 98
[2023-11-26 22:47] VITALS: BP 105/81
== END ==
LOC: ER 15:15
DX: N39.0 Urinary tract infection, site not specified (principal); R09.02 Hypoxemia; R06.00 Dyspnea, unspecified
CPT/HCPCS: 36415; 70450; 71045; 72125; 80053; 81001; 83605; 84484; 85025; 85610; 85730; 87040; 87086; 87088; 87804; 87811; 93005; 94660; J0692